=== PATIENT | male | born 1965 | race Caucasian/White ===

== ENCOUNTER 2021-02-17 09:24 | Day surgery (SDC) | payer MEDICARE, MEDICAID ==
[2021-02-17] VITALS (13 sets, daily range): BP systolic 101–125; BP diastolic 56–80
[~2021-02-17] VITALS: Ht 175.3 cm; Wt 91.8 kg
[~2021-02-17 09:24] MED LIST: ASPI-611 PO; ATOR40TA PO; CARB1TAB36 PO; CHLO25TA2 PO; CYCL-1 PO; LEVO150T8 PO; LISI40TA13 PO; METO50TA7 PO; [UNRECOGNIZED DRUG - CODE] PO
[2021-02-17] MEDS ORDERED: nitroGLYCERIN 0.4mg SUBLingual tab SL PRN (09:45)
[2021-02-17] MEDS ORDERED: normal saline 1,000 ML IV SCH (09:50)
[2021-02-17] MEDS ORDERED: diphenhydrAMINE 25mg capsule PO PRN (09:50)
[2021-02-17] MEDS ORDERED: LORazepam 0.5 MG tablet PO PRN (09:50)
[2021-02-17] MEDS ORDERED: MELA10TA PO (10:25)
[2021-02-17] MEDS ORDERED: LISI-644 PO (10:25)
[2021-02-17] MEDS ORDERED: LEVO125T PO (10:25)
[2021-02-17] MEDS ORDERED: ATOR10TA87 PO (10:25)
[2021-02-17] MEDS ORDERED: MULT-1215 PO (10:25)
[2021-02-17] MEDS ORDERED: CLOP75TA33 PO (10:25)
[2021-02-17] MEDS ORDERED: MONT-40 PO (10:25)
[2021-02-17] MEDS ORDERED: Maalox PO (10:25)
[2021-02-17] MEDS ORDERED: TERA2CAP4 PO (10:25)
[2021-02-17] MEDS ORDERED: GABA300C PO (10:25)
[2021-02-17] MEDS ORDERED: ALBU8.5H17 IH (10:25)
[2021-02-17] MEDS ORDERED: FLUT250D IH (10:36)
[2021-02-17] MEDS ORDERED: TRIA15OI9 TOP (10:36)
[2021-02-17] MEDS ORDERED: FLUT16SP2 BOTHNARES (10:36)
[2021-02-17] MEDS ORDERED: iohexol 350MG/ML 100ml bottle IV ONE (11:42)
[2021-02-17] MEDS ORDERED: midazolam 1 mg/ML 2ml injection ONE (11:42)
[2021-02-17] MEDS ORDERED: fentaNYL/PF 50MCG/1 ML 2ML syringe ONE (11:42)
[2021-02-17] MEDS ORDERED: LIDOcaine 1% (10mg/ml)w/preservative injection 20ml MDV ONE (11:42)
[2021-02-17] MEDS ORDERED: iohexol 350 MG/ML 50ML vial IV ONE (11:42)
[2021-02-17] MEDS ORDERED: acetaminophen 325mg tablet PO PRN (12:55)
[2021-02-17] MEDS ORDERED: OXAZEpam 15mg capsule PO PRN (12:55)
[2021-02-17] MEDS ORDERED: ondansetron/PF 4mg/2ml inj IV PRN (12:55)
[2021-02-17] MEDS ORDERED: proCHLORperazine 10 MG/2 ml inj IV PRN (12:55)
[2021-02-17] MEDS ORDERED: HYDROcodone/acetaminophen 5mg/325mg tablet PO PRN (12:55)
[2021-02-17] MEDS ORDERED: HYDROcodone/acetaminophen 10/325mg tab PO PRN (12:55)
== END 2021-02-17 19:00 | disposition home or self-care (01) ==
LOC: SSTAY O 09:24
PROVIDERS: ATTEND Internal Medicine Cardiovascular Disease
DX: R94.39 Abnormal result of other cardiovascular function study (principal); R07.89 Other chest pain; R06.02 Shortness of breath; I25.10 Atherosclerotic heart disease of native coronary artery without angina pectoris; G62.9 Polyneuropathy, unspecified; I10 Essential (primary) hypertension; E78.5 Hyperlipidemia, unspecified; M19.90 Unspecified osteoarthritis, unspecified site; J44.9 Chronic obstructive pulmonary disease, unspecified; Z88.5 Allergy status to narcotic agent; Z88.0 Allergy status to penicillin; Z86.73 Personal history of transient ischemic attack (TIA), and cerebral infarction without residual deficits; Z86.16 Personal history of COVID-19; Z87.891 Personal history of nicotine dependence; Z79.899 Other long term (current) drug therapy
CPT/HCPCS: 93458; 99152; C1760; C1769; J1644; J2250; J3010; J3490; J7030; Q0163; Q9967; 99153; A4620; A6258